=== PATIENT | female | born 1960 | race Caucasian/White ===

== ENCOUNTER → 2018-01-13 | Outpatient (CLI) | payer SELFPAY ==
--- NOTE | 2018-01-14 05:48 | US ---
Procedure: US ABDOMEN Exam Date: 01/13/2018 Ordering Provider: ARSALAN HOLLY IV Clinical Indication: Abdominal PAIN Comparison: None Technique: Real-time ultrasonography was obtained over the abdominal viscera and veterans contact representative images were recorded. Findings: The liver is normal in size and contour. There is normal echogenicity throughout the liver. There are no intrahepatic masses. There is no intrahepatic ductal dilatation. The gallbladder is normal in size and appearance. There are no gallstones. There is no gallbladder wall thickening or pericholecystic fluid. There is a 3 mm mural based echogenicity which likely represents a gallbladder polyp. The extrahepatic common duct is normal in size measuring 2 mm. The spleen is normal in size and contour. There is normal internal echogenicity of the spleen. There are no splenic masses. The visualized portions of the pancreas are normal. No abdominal aortic aneurysm. The inferior vena cava has a normal appearance. The right kidney measures 8.9 cm in bipolar length. Cortical thickness and echogenicity are normal. There are no masses, calculi, or hydronephrosis. The left kidney measures 9.3 cm in bipolar length. Cortical thickness and echogenicity are normal. There are no masses, calculi, or hydronephrosis. There is no ascites. Impression: 1. 3 mm gallbladder polyp. 2. Examination is otherwise negative. Electronically signed by: Kerwin Zhang MD 01/14/2018 5:46 AM [employer]ILITY SERVICE WORKER
== END ==
LOC: LAB.O 15:15
PROVIDERS: ATTEND Nurse Practitioner Family
DX: R10.84 Generalized abdominal pain (principal); K82.4 Cholesterolosis of gallbladder

== ENCOUNTER → 2018-01-16 | Outpatient (CLI) | payer OTHER | LOC: LAB.O 01-15 15:05 | PROVIDERS: ATTEND Nurse Practitioner Family | DX: R19.7 Diarrhea, unspecified (principal) ==

== ENCOUNTER → 2018-01-16 | Outpatient (CLI) | payer SELFPAY | LOC: LAB.O 07:15 | PROVIDERS: ATTEND Nurse Practitioner Family | DX: R19.7 Diarrhea, unspecified (principal) ==

== ENCOUNTER → 2019-10-14 | Outpatient (CLI) | payer OTHER ==
--- NOTE | 2019-10-14 12:31 | RAD ---
3 radiographs left wrist Indication: CLOSED FX DISTAL END RADIUS Comparison: None. Impression: Mildly comminuted fracture involving the distal radial metaphysis and epiphysis with subtle intra-articular extension adjacent to the scapholunate interval. Minimal dorsal angulation of the distal fracture fragment. Minimal impaction up to 2 mm. Severe osteoarthritis first CMC joint. Soft tissue swelling noted. Electronically signed by: Andrei Garcia MD 10/14/2019 12:29 PM CDT
== END ==
LOC: RAD 08:49
PROVIDERS: ATTEND Orthopaedic Surgery
DX: S52.572A Other intraarticular fracture of lower end of left radius, initial encounter for closed fracture (principal); M18.9 Osteoarthritis of first carpometacarpal joint, unspecified; M79.9 Soft tissue disorder, unspecified

== ENCOUNTER → 2019-11-11 | Outpatient (CLI) | payer SELFPAY ==
--- NOTE | 2019-11-12 07:11 | RAD ---
EXAM DESCRIPTION: Wrist,Left 3 Views CLINICAL HISTORY: 59 years Female, CLOSED FRACTURE OF DISTAL END OF LEFT RADIUS COMPARISON: October 14, 2019 Findings: 3 view(s)/radiograph(s) Healing intra-articular distal left radius fracture. Similar alignment. No acute fracture lucency identified. Osteopenia. Carpal alignment maintained. No dislocation. Similar degenerative changes. IMPRESSION: Healing intra-articular distal left radius fracture. Electronically signed by: Toro Frost MD 11/12/2019 6:43 AM CDT
== END ==
LOC: RAD 09:06
PROVIDERS: ATTEND Orthopaedic Surgery
DX: S52.572D Other intraarticular fracture of lower end of left radius, subsequent encounter for closed fracture with routine healing (principal)